=== PATIENT | female | born 1960 | race Caucasian/White ===

== ENCOUNTER 2018-11-20 11:46 | Outpatient (CLI) | payer MEDICAID, SELFPAY | END 2018-11-20 12:06 | PROVIDERS: PCP Obstetrics & Gynecology; Visit Provider Student in an Organized Health Care Education/Training Program | DX: R55 Syncope and collapse (principal); R42 Dizziness and giddiness; E03.9 Hypothyroidism, unspecified | CPT/HCPCS: 93005; 93010 ==

== ENCOUNTER 2019-01-03 00:40 | Outpatient (CLI) | payer MEDICAID, SELFPAY ==
--- NOTE | 2019-01-03 13:57 | MERGE_ITS ---
*[facility]* *[facility]* [address] [place] [address] Date of study: 01/03/2019 Transthoracic Echocardiography M-mode, complete 2D, complete spectral Doppler, and color Doppler *STUDY CONCLUSIONS* Summary: 1. Left ventricle: The cavity size was normal. Systolic function was hyperdynamic. The estimated ejection fraction was 65-70%. Diastolic parameters were normal. There was no evidence of elevated ventricular filling pressure by Doppler parameters. 2. Mitral valve: There was mild regurgitation. 3. Right ventricle: The cavity size was normal. Wall thickness was normal. Systolic function was normal. 4. Atrial septum: No defect or patent foramen ovale was identified. 5. Pulmonary arteries: Pulmonary systolic pressure was in the range of 15mm Hg to 25mm Hg. 6. Inferior vena cava: The vessel was patent and normal in size. The respirophasic diameter changes were in the normal range (greater than or equal to 50%), consistent with normal central venous pressure. *PATIENT PRESENTATION* Height: 160cm ((63in) ) S/D Pressure: 120 / 69 Weight: 49.9kg ((109.8lb) ) BSA: 1.49m^2 Test start time: 02:00 PM. Test stop time: 03:00 PM. CONSULTING Sid Jorgensen PERFORMING Unknown ORDERING Jose Beltrán REFERRING Jose Beltrán PERFORMING [facility] HEAT TREAT WORKER RT Yudith MorrisR)(MAHSA)EL *PROCEDURE DATA* Procedure information: The patient was identified by two identifiers. This study was interpreted by [facility]. Pertinent images and digital data are archived for permanent storage and are available for subsequent review. No prior study was available for comparison. Study status: Routine. Transthoracic echocardiography. M-mode, complete 2D, complete spectral Doppler, and color Doppler. A Transthoracic Echocardiogram was performed. Scanning was performed from the parasternal, apical, subcostal, and suprasternal notch acoustic windows. Images were obtained using an [id number] cardiac ultrasound machine. Image quality was good. Study completion: The patient tolerated the procedure well. History: PMH: Near syncope and collapse. R55. *CARDIAC ANATOMY* Left ventricle: The cavity size was normal. Systolic function was hyperdynamic. The estimated ejection fraction was 65-70%. The tissue Doppler parameters were normal. Diastolic parameters were normal. There was no evidence of elevated ventricular filling pressure by Doppler parameters. Aortic valve: Trileaflet. Doppler: There was no stenosis. There was no regurgitation. VTI ratio of LVOT to aortic valve: 0.71. Valve area (VTI): 1.5cm^2. Indexed valve area (VTI): 1cm^2/m^2. Peak velocity ratio of LVOT to aortic valve: 0.73. Valve area (Vmax): 1.5cm^2. Indexed valve area (Vmax): 1cm^2/m^2. Mean velocity ratio of LVOT to aortic valve: 0.7. Valve area (Vmean): 1.5cm^2. Indexed valve area (Vmean): 1cm^2/m^2. Mean gradient (S): 5.3mm Hg. Peak gradient (S): 8.8mm Hg. Aorta: Aortic root: The aortic root was normal in size. Ascending aorta: The ascending aorta was normal in size. Mitral valve: Doppler: There was no evidence for stenosis. There was mild regurgitation. Valve area by pressure half-time: 4.1cm^2. Indexed valve area by pressure half-time: 2.7cm^2/m^2. Peak gradient (D): 2.5mm Hg. Left atrium: The atrium was normal in size. Atrial septum: No defect or patent foramen ovale was identified. Right ventricle: The cavity size was normal. Wall thickness was normal. Systolic function was normal. Pulmonic valve: Doppler: There was no evidence for stenosis. There was no significant regurgitation. Peak gradient (S): 3.5mm Hg. Tricuspid valve: Doppler: There was trivial regurgitation. Pulmonary artery: Poorly visualized. Pulmonary systolic pressure was in the range of 15mm Hg to 25mm Hg. Right atrium: The atrium was normal in size. Pericardium: There was no pericardial effusion. Systemic veins: Inferior vena cava: Well visualized. The vessel was patent and normal in size. The respirophasic diameter changes were in the normal range (greater than or equal to 50%), consistent with normal central venous pressure. Baseline ECG: Normal sinus rhythm. Measurements Left ventricle Value Reference LV ID, ED, PLAX 3.5 cm 3.5 - 6.0 LV ID, ES, PLAX 2.1 cm 2.1 - 4.0 LV PW thickness, ED, PLAX 1.0 cm LV end-diastolic volume, 1-p A2C 57 ml LV ejection fraction, 1-p A2C 54 % LV end-diastolic volume, 1-p A4C 58 ml LV ejection fraction, 1-p A4C 58 % LV e', lateral 0.103 m/sec LV E/e', lateral 8 LV e', medial 0.108 m/sec LV E/e', medial 7 LV e', average 0.106 m/sec LV E/e', average 8 Ventricular septum Value Reference IVS thickness, ED, PLAX 1.0 cm LVOT Value Reference LVOT ID, A-P 1.6 cm LVOT area 2.1 cm^2 LVOT peak velocity, S 1.08 m/sec LVOT mean velocity, S 0.78 m/sec LVOT VTI, S 23.5 cm LVOT peak gradient, S 4.6 mm Hg LVOT mean gradient, S 2.7 mm Hg Stroke volume (SV), LVOT DP 49 ml Stroke index (SV/bsa), LVOT DP 33 ml/m^2 Aortic valve Value Reference Aortic valve peak velocity, S 1.5 m/sec Aortic valve mean velocity, S 1.11 m/sec Aortic valve VTI, S 33.0 cm Aortic mean gradient, S 5.3 mm Hg Aortic peak gradient, S 8.8 mm Hg VTI ratio, LVOT/AV 0.71 Aortic valve area, VTI 1.5 cm^2 Velocity ratio, peak, LVOT/AV 0.73 Aortic valve area, peak velocity 1.5 cm^2 Velocity ratio, mean, LVOT/AV 0.7 Aortic valve area, mean velocity 1.5 cm^2 Aortic valve area/bsa, mean velocity 1 cm^2/m^2 Aorta Value Reference Aortic root ID, ED 2.5 cm Ascending aorta ID, A-P, S 2.5 cm Left atrium Value Reference LA ID, A-P, ES 2.0 cm LA ID/bsa, A-P 1.4 cm/m^2 <=2.2 LA area, ES, A4C 15.1 cm^2 8.8 - 23.4 LA area, ES, A2C 11 cm^2 LA volume/bsa, ES, 1-p A4C 28 ml/m^2 LA volume, ES, 2-p 28 ml LA volume/bsa, ES, 2-p 19 ml/m^2 LA/aortic root ratio 0.82 Mitral valve Value Reference Mitral E-wave peak velocity 0.8 m/sec Mitral A-wave peak velocity 0.61 m/sec Mitral deceleration time 186 ms 150 - 230 Mitral pressure half-time 54 ms Mitral peak gradient, D 2.5 mm Hg Mitral E/A ratio, peak 1.3 Mitral valve area, PHT, DP 4.1 cm^2 Pulmonary veins Value Reference Pulmonary vein peak velocity, S 0.7 m/sec Pulmonary vein peak velocity, D 0.44 m/sec Pulmonary vein velocity ratio, peak, 1.58 S/D Pulmonary vein A-wave reversal peak 0.42 m/sec velocity Tricuspid valve Value Reference Tricuspid regurg peak velocity 2 m/sec Tricuspid peak RV-RA gradient 15.9 mm Hg Right atrium Value Reference RA area, ES, A4C 11.5 cm^2 8.3 - 19.5 Pulmonic valve Value Reference Pulmonic peak gradient, S 3.5 mm Hg Legend: (L) and (H) joleen values outside specified reference range. I have personally reviewed the images and have reviewed and edited the reported findings. Electronically signed by Jose Cheng MD 01/03/2019 18:49
== END 2019-01-03 01:00 ==
PROVIDERS: PCP Obstetrics & Gynecology; Visit Provider Student in an Organized Health Care Education/Training Program
DX: R55 Syncope and collapse (principal); I34.0 Nonrheumatic mitral (valve) insufficiency
CPT/HCPCS: 93306

== ENCOUNTER 2019-02-27 10:50 | Outpatient (CLI) | payer MEDICAID, SELFPAY ==
[2019-02-27 13:29] LABS: Calculated LDL 179; Cholesterol 277 mg/dL (50-200); HDL Cholesterol 90 mg/dL (40-60); Triglyceride 40 mg/dL (30-150)
== END 2019-02-27 11:10 ==
PROVIDERS: PCP Obstetrics & Gynecology; Visit Provider Family Medicine
DX: E03.9 Hypothyroidism, unspecified (principal); Z13.220 Encounter for screening for lipoid disorders
CPT/HCPCS: 36415; 80061; 83721; 84443

== ENCOUNTER 2019-08-15 11:43 | Outpatient (CLI) | payer MEDICAID, SELFPAY ==
[2019-08-15 17:32] LABS: FREE T4 1.39 ng/dL (0.76-1.46); TSH 1.44 uIU/mL (0.36-3.74)
[2019-08-17 16:39] LABS: T3,Free 3.5 pg/mL (2.8-5.3)
== END 2019-08-15 12:03 ==
PROVIDERS: PCP Obstetrics & Gynecology; Visit Provider Family Medicine
DX: E78.5 Hyperlipidemia, unspecified (principal); E03.9 Hypothyroidism, unspecified
CPT/HCPCS: 36415; 84439; 84443; 84481

== ENCOUNTER → 2023-05-14 01:20 | Outpatient (CLI) | payer MEDICAID, SELFPAY ==
--- NOTE | 2023-05-14 | DI.MRI_ITS ---
Exam(s) MR LOWER JOINT RT WO EXAM: MR LOWER JOINT RT WO CLINICAL HISTORY: ACHILLES TENDINITIS, M76.60 TECHNIQUE: Multiplanar multisequence MRI was performed without intravenous contrast. COMPARISON: No exams were available for comparison FINDINGS: Exam is limited by patient motion. BONES/JOINTS: No fracture or contusion pattern. No bone lesions identified. The talar dome is smooth. The ankle mortise is maintained. No joint effusion is present. MUSCULOTENDINOUS STRUCTURES: Achilles tendon: 30 of tendon is normal in thickness and signal. Question of some high signal distal ly near the insertion could represent artifact versus small partial tear or tendinitis. No evidence of full-thickness tear. Plantar fascia: Unremarkable. Anterior Extensor tendons: Unremarkable. Posterior Tibialis: Unremarkable. Flexor Digitorum longus: Unremarkable. Flexor Hallucis longus: Unremarkable. Peroneus longus: Unremarkable. Peroneus brevis:Unremarkable. SOFT TISSUES: Mild edema in the subcutaneous fat. IMPRESSION: Limited exam due to motion. Question of small partial tear versus tendinitis of the Achilles tendon near the insertion on the calcaneus. DATA REPOSITORY:
== END ==
PROVIDERS: PCP Family Medicine; Visit Provider Family Medicine
DX: M76.61 Achilles tendinitis, right leg (principal)
CPT/HCPCS: 73721

== ENCOUNTER 2024-07-10 13:30 | Outpatient (CLI) | payer MEDICAID, SELFPAY ==
--- OUTSIDE RECORDS SUMMARY | 2024-07-10 13:32 | XMS_ITS | Referral Summary ---
Author Organization [facility] Address [address] [place] [address] Care Team Providers Care Account Support Associate Name Role Phone Unknown, Provider Primary Care Provider Social History Tobacco Use Types Packs/Day Years Used Date Smoking Tobacco: Never Assessed Sex and Gender Information Value Date Recorded Sex Assigned at Not on file Gender Identity Not on file Sexual Orientation Not on file Plan of Treatment Upcoming Encounters Date Type Department Care Team (Late st Contact Info) Description 09/03/2024 14:15 EST Office Visit [facility] Ophthalmology [facility] [address] [place] [address] Wesley Jorge MD [address] [place] [phone] Nery, Flavia Personal/Famil y Self 1960 [address] [place] [address] Nery, Flavia Personal/Famil y Self [address] [place] [address] Nery, Flavia Personal/Famil y Self 1960 [address] [place] [address] Care Teams Account Support Associate Relationship Specialty Start Date End Date Unknown, Provider, PCP - General 05/30/10
--- OUTSIDE RECORDS SUMMARY | 2024-07-10 13:32 | XMS_ITS | Encounter Summary ---
Author Organization [facility] Address [address] [place] [address] Care Team Providers Care Fresh Food Manager Name Role Phone Unknown, Provider Primary Care Provider Encounter Details Date Type Department Care Team (Late st Contact Info) Description 04/13/2006 Results Only [facility] [address] [place] [address] Karl Jackson ARNP [address] [place] [address] Social History Tobacco Use Types Packs/Day Years Used Date Smoking Tobacco: Never Assessed Sex and Gender Information Value Date Recorded Sex Assigned at Not on file Gender Identity Not on file Sexual Orientation Not on file documented as of this encounter Plan of Treatment Upcoming Encounters Date Type Department Care Team (Late st Contact Info) Description 09/03/2024 14:15 EST Office Visit [facility] Ophthalmology [facility] [address] [place] [address] Wesley Jorge MD [address] [place] [phone] documented as of this encounter Procedures Procedure Name Priority Date/Time Associated Diagnosis Comments CYTOPATHOLOGY Routine 04/13/2006 0:00 EDT documented in this encounter Results * CYTOPATHOLOGY (04/13/2006 0:00 EDT) Pathology Report: CYTOPATHOLOGY REPORT Reports generated via electronic interface contain original data; however they are lacking the format of the original report. Caution should be taken when reading/interpreti ng unformatted reports. Name: ? CHARLES POLK ? Accession #: ? [id number] : ? 1960 (Age: 46) ??F ?Collect Date: ? 04/13/2006 Location: ? [facility] ? Receive Date: ? 04/18/2006 Provider: ?KARL PRASAD Copy to: ? Specimen/Source: ?ThinPrep Pap Test, Vagina/Cervix/Endo cervix, processed on [employer] ThinPrep Imaging System, with manual evaluation Last Menstrual Period: ? 03/29 Hormonal/Contracep tive Status: ? Yes Other: ? Additional clinical information: Vaginal discharge. H/o 90 Atypical x 1. Previous atypical. ? SPECIMEN ADEQUACY ? Satisfactory for Evaluation - transformation zone component present GENERAL CATEGORIZATION ? Negative for Intraepithelial Lesion or Malignancy ? Document reviewed and electronically signed by: ? MAHSA Walker(ASCP) ? Report Date: ??04/20/2006 11:03 End of Report [facility] 04/13/2006 04/18/2006 Karl PRASAD PATHOLOGY ORDERABL ES [facility] [address] [place] [address] documented in this encounter Visit Diagnoses Not on filedocumented in this encounter Care Teams Fresh Food Manager Relationship Specialty Start Date End Date Unknown, Provider, PCP - General 05/30/10 documented as of this encounter
--- OUTSIDE RECORDS SUMMARY | 2024-07-10 13:32 | XMS_ITS | Encounter Summary ---
Author Organization [facility] Address [address] [place] [address] Care Team Providers Care Medical Physiologist Name Role Phone Unknown, Provider Primary Care Provider [phone] Encounter Details Date Type Department Care Team (Late st Contact Info) Description 05/24/2012 Results Only [facility] Services - [facility] ([facility] [address] [place], [place] [address] Karl Jackson ARNP [address] [place] [address] Social History Tobacco Use Types Packs/Day Years Used Date Smoking Tobacco: Never Assessed Sex and Gender Information Value Date Recorded Sex Assigned at Not on file Gender Identity Not on file Sexual Orientation Not on file documented as of this encounter Plan of Treatment Upcoming Encounters Date Type Department Care Team (Late st Contact Info) Description 09/03/2024 14:15 EST Office Visit [facility] Ophthalmology [facility] [address] [place] [address] Wesley Jorge MD [address] [place] [phone] documented as of this encounter Procedures Procedure Name Priority Date/Time Associated Diagnosis Comments PAP TEST- RESULT ONLY Routine 05/24/2012 0:00 EDT documented in this encounter Results * PAP TEST- RESULT ONLY (05/24/2012 0:00 EDT) Pathology Report: CYTOPATHOLOGY REPORT Reports generated via electronic interface contain original data; however they are lacking the format of the original report. Caution should be taken when reading/interpreti ng unformatted reports. Name: ? JAM, CHARLES ? Accession #: ? [id number] : ? 1960 (Age: 52) ??F ?Collect Date: ? 05/24/2012 Location: ? [facility] ? Receive Date: ? 05/28/2012 Provider: ?KARL PRASAD Copy to: ? Specimen/Source: ?Pap Test, Cervix/Endocervix, ThinPrep Imaging System with manual evaluation Last Menstrual Period: ? 1 wk. Previous Gynecologic Pathology: ? Yes: H/o '90 Atypical x 1 ? SPECIMEN ADEQUACY ? - scant squamous epithelial component secondary to excessive blood GENERAL CATEGORIZATION ? Negative for Intraepithelial Lesion or Malignancy INTERPRETATION ? Reactive cellular changes associated with inflammation present (includes repair). ? Document reviewed and electronically signed by: ? DHAVAL ROBLEDO MD ? Report Date: ??06/05/2012 13:57 End of Report [facility] 05/24/2012 05/28/2012 Karl PRASAD PATHOLOGY ORDERABL ES [facility] [address] [place] [address] documented in this encounter Visit Diagnoses Not on filedocumented in this encounter Care Teams Medical Physiologist Relationship Specialty Start Date End Date Unknown, Provider, PCP - General 05/30/10 documented as of this encounter
--- OUTSIDE RECORDS SUMMARY | 2024-07-10 13:32 | XMS_ITS | Continuity of Care Document ---
Author Organization [facility] Address [address] [place] [address] Encounter LTTL_NH FIN NBR [id number] Date(s): 02/27/24 - 02/27/24 [facility] [address] [place] [address]- Discharge Disposition: Home or Self Care Attending Physician: MAINOR LEE Admitting Physician: MAINOR LEE Referring Physician: MAINOR LEE Results Radiology Reports * Exam Date Time Procedure Performing Provider Status 02/27/24 4:27 PM MRI Ankle w/o Contrast Left DomainUser , Generated; Auth (Verified) Notes: (MRI Ankle w/o Contrast Left) Reason For Exam: disorders of tendon, effusion MRI Ankle w/o Contrast Left EXAM DESCRIPTION: MRI Ankle w/o Contrast Left 02/27/2024 INDICATION: DISORDERS OF TENDON, EFFUSION TECHNIQUE: MRI examination of the left ankle and hindfoot in 3 planes utilizing T1, PD, fat suppressed PD and fast stir technique. Mild patient motion artifact. COMPARISON: None FINDINGS: No regional marrow edema to suggest bone contusion or occult fracture. No AVN. Talar dome appears intact with no evidence of osteochondritis desiccans No regional joint effusion Achilles tendon appears intact with no evidence of tendinosis or tear. Peroneal tendons as well as the medial and anterior ankle tendons appear intact. No abnormal regional tendon sheath fluid accumulation to suggest tenosynovitis Anterior and posterior talofibular ligaments, anterior and posterior tibiofibular ligaments as well as visualized portions of the deltoid, spring and Lisfranc ligaments appear intact Visualized portions of the plantar fascia appear intact with no inflammatory changes. Normal fat signal in the sinus tarsi with no findings to suggest sinus tarsi syndrome. No abnormal regional fluid collection is identified to suggest ganglion cyst. IMPRESSION: Unremarkable MRI examination of the left ankle and hindfoot. JOB #: [id number] Final Signed by: Sp Bhakta MD Signed (Electronic Signature): 02/27/2024 5:02 pm
--- OUTSIDE RECORDS SUMMARY | 2024-07-10 13:32 | XMS_ITS | Clinical Summary ---
Author Organization [facility] Address [address] [place] [address] Care Team Providers Care Mechanical Engineering Manager Name Role Phone Unknown, Provider Primary [...] Info) Description 09/03/2024 14:15 EST Office Visit [facility] Ophthalmology [facility] [address] [place] [address] Wesley Jorge MD [address] [place] [phone] Health Maintenance Due Date Last Done Comments Hepatitis C Screen 1960 RSV Immunization ( o r 60+ Years) (1 - 1-dose 60+ series) 2022 COVID-19 Vaccine ( season) 2024 Nery, Flavia Personal/Famil y Self 1960 [address] [place] [address] Nery, Flavia Personal/Famil y Self 1960 [address] [place] [address] Nery, Flavia Personal/Famil y Self 1960 [address] [place] [address] Care Teams Mechanical Engineering Manager Relationship Specialty Start Date End Date Unknown, Provider, PCP - General 05/30/10
--- OUTSIDE RECORDS SUMMARY | 2024-07-10 13:32 | XMS_ITS | Encounter Summary ---
Author Organization [facility] Address [address] [place] [address] Care Team Providers Care Portable Machine Cutter Name Role Phone Unknown, Provider Primary Care Provider Encounter Details Date Type Department Care Team (Late st Contact Info) Description 08/16/2019 Lab Requisition [facility] Pathology & Laboratory Medicine - [facility] [address] [place] [address] Unknown, Provider, Social History Tobacco Use Types Packs/Day Years Used Date Smoking Tobacco: Never Assessed Sex and Gender Information Value Date Recorded Sex Assigned at Not on file Gender Identity Not on file Sexual Orientation Not on file documented as of this encounter Plan of Treatment Upcoming Encounters Date Type Department Care Team (Late st Contact Info) Description 09/03/2024 14:15 EST Office Visit [facility] [address] [place] [address] Wesley Jorge MD [address] [place] [phone] documented as of this encounter Procedures Procedure Name Priority Date/Time Associated Diagnosis Comments T3 FREE Routine 08/15/2019 16:12 EST documented in this encounter Results * T3 FREE (08/15/2019 16:12 EST) T3, Free 3.5 2.8 - 5.3 pg/mL 08/17/2019 16:35 EST [facility] Blood VENOUS BLOOD / Unknown 08/15/2019 16:12 EST 08/17/2019 16:07 EST Provider Unknown CHEMISTRY & BLOOD GA S ORDERABLES [facility] [address] [place] [address] documented in this encounter Visit Diagnoses Not on filedocumented in this encounter Care Teams Portable Machine Cutter Relationship Specialty Start Date End Date Unknown, Provider, PCP - General 05/30/10 documented as of this encounter
--- OUTSIDE RECORDS SUMMARY | 2024-07-10 13:32 | XMS_ITS | Encounter Summary ---
Author Organization [facility] Address [address] [place] [address] Care Team Providers Care Software Team Leader Name Role Phone Unknown, Provider Primary Care Provider Encounter Details Date Type Department Care Team (Late st Contact Info) Description 05/27/2010 Results Only [facility] - [facility] ([facility] [address] [place], [place] [address] Karl Jackson ARNP [address] [place] [phone] Social History Tobacco Use Types Packs/Day Years Used Date Smoking Tobacco: Never Assessed Sex and Gender Information Value Date Recorded Sex Assigned at Not on file Gender Identity Not on file Sexual Orientation Not on file documented as of this encounter Plan of Treatment Upcoming Encounters Date Type Department Care Team (Late st Contact Info) Description 09/03/2024 14:15 EST Office Visit [facility] [address] [place] [address] Wesley Jorge MD [address] [place] [phone] documented as of this encounter Procedures Procedure Name Priority Date/Time Associated Diagnosis Comments CYTOPATHOLOGY Routine 05/27/2010 0:00 EDT documented in this encounter Results * CYTOPATHOLOGY (05/27/2010 0:00 EDT) Pathology Report: CYTOPATHOLOGY REPORT ? Reports generated via electronic interface contain original data; ? however they are lacking the format of the original report. ? Caution should be taken when reading/interpreti ng unformatted reports. ? Name: ? CHARLES POLK ? Accession #: ? [id number] ? : ? 1960 (Age: 50) ??F ?Collect Date: ? 05/27/2010 ? Location: ? [facility] ? Receive Date: ? 05/31/2010 ? Provider: ?KARL PRASAD ? Copy to: ? Specimen/Source: ?Pap Test, Vagina/Cervix/Endo cervix, ThinPrep Imaging ? System with manual evaluation ? Last Menstrual Period: ? 08/20/10 ? Previous Gynecologic Pathology: ? Yes: H/o 90 atypia x 1 ? Other: ? Additional clinical information: Dysmenorrhea ? HPVA - HPV testing requested if ASC-US on the current ThinPrep Pap test. ? SPECIMEN ADEQUACY ? Satisfactory for Evaluation ? - transformation zone component present ? GENERAL CATEGORIZATION ? Negative for Intraepithelial Lesion or Malignancy ? Document reviewed and electronically signed by: ? Lynan Diego, CT(ASCP) ? Report Date: ??06/01/2010 10:47 ? End of Report ? [facility] 05/27/2010 05/31/2010 Karl PRASAD PATHOLOGY ORDERABL ES [facility] [address] [place] [address] documented in this encounter Visit Diagnoses Not on filedocumented in this encounter Care Teams Software Team Leader Relationship Specialty Start Date End Date Unknown, Provider, PCP - General 05/30/10 documented as of this encounter
--- OUTSIDE RECORDS SUMMARY | 2024-07-10 13:32 | XMS_ITS | Encounter Summary ---
Author Organization [facility] Address [address] [place] [address] Care Team Providers Care Photoengraving Retoucher Name Role Phone Unavailable Primary Care Provider Unavailabl e Encounter Details Date Type Department Care Team (Late st Contact Info) Description 03/11/2008 Before PRISM Converted Visit (Maple) [facility] - Maple conversion [address] [place] [address] Karl Jackson ARNP [address] [place] [id number] Social History Tobacco Use Types Packs/Day Years Used Date Smoking Tobacco: Never Assessed Sex and Gender Information Value Date Recorded Sex Assigned at Not on file Gender Identity Not on file Sexual Orientation Not on file documented as of this encounter Plan of Treatment Upcoming Encounters Date Type Department Care Team (Late st Contact Info) Description 09/03/2024 14:15 EST Office Visit [facility] [address] [place] [address] Wesley Jorge MD [address] [place] [id number] documented as of this encounter Procedures Procedure Name Priority Date/Time Associated Diagnosis Comments CYTOPATHOLOGY Routine 03/11/2008 0:00 EDT documented in this encounter Results * CYTOPATHOLOGY (03/11/2008 0:00 EDT) Pathology Report: CYTOPATHOLOGY REPORT ? Reports generated via electronic interface contain original data; ? however they are lacking the format of the original report. ? Caution should be taken when reading/interpreti ng unformatted reports. ? Name: ? CHARLES WOOTEN ? Accession #: ? [id number] ? : ? 1960 (Age: 48) ??F ?Collect Date: ? 03/11/2008 ? Location: ? [facility] ? Receive Date: ? 03/13/2008 ? Provider: ?KARL PRASAD ? Copy to: ? Specimen/Source: ?ThinPrep Pap Test, Vagina/Cervix/Endo cervix, processed ?? on Cytyc ThinPrep Imaging System, with manual evaluation ? Last Menstrual Period: ? 1 1/2 weeks ? Hormonal/Contracep tive Status: ? Yes: Synthorid ? Previous Gynecologic Pathology: ? Yes: 1990 atypia x1 ? SPECIMEN ADEQUACY ? Satisfactory for Evaluation ? - transformation zone component present ? GENERAL CATEGORIZATION ? Negative for Intraepithelial Lesion or Malignancy ? Document reviewed and electronically signed by: ? Tristen Eliuler, CT(ASCP) ? Report Date: ??03/17/2008 15:30 ? End of Report ? [facility] R[facility]DLE 03/11/2008 03/13/2008 Karl PRASAD PATHOLOGY ORDERABL ES [facility] [address] [place] [address] documented in this encounter Visit Diagnoses Not on filedocumented in this encounter
[2024-07-10 14:23] LABS: TSH (W/Ref FT4) 0.32 uIU/mL (0.36-3.74)
[2024-07-10 14:42] LABS: FREE T4 1.36 ng/dL (0.76-1.46)
== END 2024-07-10 13:31 | disposition home or self-care (01) ==
LOC: LBO 13:31
PROVIDERS: PCP Family Medicine; Visit Provider Family Medicine
DX: E03.9 Hypothyroidism, unspecified (principal)
CPT/HCPCS: 36415; 84439; 84443

== ENCOUNTER 2024-07-25 00:54 | Outpatient (CLI) | payer MEDICAID, SELFPAY ==
--- NOTE | 2024-07-25 08:02 | DI.RAD_ITS ---
Exam(s) XR FOOT RT COMPLETE EXAM: XR FOOT RT COMPLETE CLINICAL HISTORY: PAIN RT FOOT,M79.671. TECHNIQUE: 2D digital imaging was performed of the right foot. Three images were obtained. AP, obl ique and lateral views were obtained. COMPARISON: MR MR LOWER JOINT RT WO from 05/14/2023 FINDINGS: BONES: No acute fracture is present. No bony destructive lesion is seen. There is a small plantar kelly caneal spur. There is a small enthesophyte at the posterior calcaneus. JOINTS: No dislocation present. Joint spaces are well maintained. SOFT TISSUE: Normal. IMPRESSION: Calcaneal spurs. DATA REPOSITORY: RADIATION DOSE DELIVERED:
== END 2024-07-25 01:14 ==
LOC: DI 00:54
PROVIDERS: PCP Family Medicine; Visit Provider Podiatrist Foot & Ankle Surgery
DX: M77.31 Calcaneal spur, right foot (principal)
CPT/HCPCS: 73630